=== PATIENT | female | born 1975 | race Hispanic/Latino ===

== ENCOUNTER 2017-10-23 08:50 | Emergency (ER) | payer MEDICAID ==
[2017-10-23 09:39] LABS: APPEARANCE,URINE Turbid (CLEAR); BILIRUBIN,URINE Negative (NEGATIVE); COLOR,URINE Yellow (YELLOW); GLUCOSE, URINE (UA) Negative (NEGATIVE); KETONES,URINE Negative (NEGATIVE); LEUKOCYTE ESTERASE ,URINE Large (NEGATIVE); NITRATE,URINE Positive (NEGATIVE); OCCULT BLOOD,URINE Moderate (NEGATIVE); PH,URINE 5.5 (5.0-8.0); PROTEIN,URINE Negative (NEGATIVE); UROBILINOGEN,URINE 0.2 mg/dL (0.2-1.0)
[2017-10-23 09:44] LABS: HCG,QUAL RESULT NEGATIVE (NEGATIVE)
[2017-10-23 09:46] LABS: AMPHET/METH SCREEN,URINE NEGATIVE (NEGATIVE); BARBITURATE SCREEN, URINE NEGATIVE (NEGATIVE); BENZODIAZEPINES SCREEN,URINE NEGATIVE (NEGATIVE); CANNABINOID SCREEN,URINE NEGATIVE (NEGATIVE); COCAINE SCREEN,URINE NEGATIVE (NEGATIVE); OPIATE SCREEN,URINE NEGATIVE (NEGATIVE); PHENCYCLIDINE SCREEN,URINE NEGATIVE (NEGATIVE)
[2017-10-23 09:47] LABS: RBC,URINE 0-1 /HPF (0-1)
[2017-10-23 09:48] LABS: BACTERIA,URINE Few /HPF (None Seen); SQUAMOUS EPITHELIAL CELL,UR Rare /HPF (0-2); WBC,URINE 51-100 /HPF (0-1)
== END 2017-10-23 10:06 | disposition home or self-care (01) ==
LOC: EDH 08:50
DX: N39.0 Urinary tract infection, site not specified (principal)
CPT/HCPCS: 80305; 81001; 81025

== ENCOUNTER 2017-11-25 11:55 | Emergency (ER) | payer MEDICAID | END 2017-11-25 13:16 | disposition home or self-care (01) | LOC: EDH 11:55 | DX: L23.9 Allergic contact dermatitis, unspecified cause (principal); Z90.710 Acquired absence of both cervix and uterus; Z98.890 Other specified postprocedural states | CPT/HCPCS: 99282 ==

== ENCOUNTER 2023-10-07 17:38 | Emergency (ER) | payer BC, MEDICAID ==
[~2023-10-07] VITALS: Ht 157.5 cm; Wt 88.5 kg
[~2023-10-07 17:38] MED LIST: KETO-99 OP
[2023-10-07 18:03] LABS: HEMATOCRIT 43.1 % (36-48); MEAN CORPUSCULAR HGB CONC 32.9 g/dL (32.0-36.0); MEAN CORPUSCULAR VOLUME 75.9 fL (79-99); PLATELET COUNT (AUTO) 332 K/uL (130-400); RED BLOOD CELL COUNT(AUTO) 5.68 MIL/uL (4.00-5.50); RED CELL DISTRIBUTION WIDTH 14.4 % (11.0-15.5); WHITE BLOOD COUNT (AUTO) 15.1 K/uL (4.8-10.8)
[2023-10-07 18:12] LABS: POTASSIUM 2.9 mmol/L (3.5-5.1)
[2023-10-07] MEDS: KCL 20 MEQ ERTAB PO ONE (18:26)
[2023-10-07 19:14] LABS: APPEARANCE,URINE CLEAR (CLEAR); BILIRUBIN,URINE NEGATIVE (NEGATIVE); COLOR,URINE LIGHT-YELLOW (YELLOW); GLUCOSE, URINE (UA) NEGATIVE (NEGATIVE); KETONES,URINE NEGATIVE (NEGATIVE); LEUKOCYTE ESTERASE ,URINE NEGATIVE Leu/uL (NEGATIVE); NITRATE,URINE 2+ (NEGATIVE); OCCULT BLOOD,URINE MODERATE (NEGATIVE); PROTEIN,URINE NEGATIVE (NEGATIVE); UROBILINOGEN,URINE 0.2 mg/dL (0.2-1.0)
[2023-10-07 19:37] LABS: ADD UA MICROSCOPIC YES
[2023-10-07 19:40] LABS: BACTERIA,URINE MANY /HPF (None Seen); MUCUS,URINE RARE LPF (None Seen); SQUAMOUS EPITHELIAL CELL,UR RARE /HPF (0-2)
[2023-10-07] MEDS: CEFTRIAXONE 2GM VIAL IVPB ONE (20:20)
[2023-10-07] MEDS ORDERED: CEPH500C2 PO (20:40)
[2023-10-07] MEDS: FAMOTIDINE 20MG VIAL IV ONE (20:58)
[2023-10-07] MEDS: 0.9%NACL 1000ML 1,000 ML IV SCH (20:58)
[2023-10-07] MEDS: DiphenhydrAMINE HCL 50 MG/ML VIAL IV ONE (20:58)
[2023-10-07 22:42] VITALS: BP 132/82; PULSE 90; RESP 16; O2SAT 100
== END 2023-10-07 22:43 | disposition home or self-care (01) ==
LOC: EDH 17:38
DX: N39.0 Urinary tract infection, site not specified (principal); I10 Essential (primary) hypertension; F41.9 Anxiety disorder, unspecified; Z90.710 Acquired absence of both cervix and uterus; Z98.890 Other specified postprocedural states; Z88.2 Allergy status to sulfonamides; Z88.8 Allergy status to other drugs, medicaments and biological substances
CPT/HCPCS: 99284; 96365; 71045; 96361; 96375; 83735; 84484; 80048; 85027; 87077; 87088; 87186; 81001; 36415; 93005; J1200; J3490; J7030; J0696

== ENCOUNTER 2023-10-29 18:21 | Emergency (ER) | payer BC ==
[~2023-10-29] VITALS: Ht 157.5 cm; Wt 89.8 kg
[~2023-10-29 18:21] MED LIST changes: +CEPH500C2 PO
[2023-10-29] MEDS: ALBUTEROL 0.083% 2.5 MG/3 ML INH IH ONE (19:09)
[2023-10-29 19:14] VITALS: PULSE 84; RESP 14
[2023-10-29 19:26] VITALS: O2SAT 100
[2023-10-29 19:33] LABS: SARS-CoV-2, RNA, NAAT NEGATIVE SARS CoV-2 (NEGATIVE)
[2023-10-29 19:39] LABS: INFLUENZA TYPE A Negative For Type A (NEGATIVE); INFLUENZA TYPE B Negative For Type B (NEGATIVE)
[2023-10-29] MEDS: HYDROXYZINE 25 MG TABLET PO ONE (19:49)
[2023-10-29] MEDS: SOLU-MEDROL 125MG VIAL IM ONE (19:50)
[2023-10-29] MEDS ORDERED: METH4TAB3 PO (21:27)
[2023-10-29] MEDS ORDERED: AUD IH (21:27)
[2023-10-29] MEDS ORDERED: CETI10CA5 PO (21:27)
[2023-10-29] MEDS ORDERED: ALBUHFA IH (21:27)
[2023-10-29 21:28] VITALS: BP 134/70; PULSE 86; RESP 18
== END 2023-10-29 21:45 | disposition home or self-care (01) ==
LOC: EDH 18:21
DX: J45.901 Unspecified asthma with (acute) exacerbation (principal); F41.9 Anxiety disorder, unspecified; I10 Essential (primary) hypertension; E78.00 Pure hypercholesterolemia, unspecified; Z20.822 Contact with and (suspected) exposure to COVID-19; Z79.899 Other long term (current) drug therapy; Z90.710 Acquired absence of both cervix and uterus; Z88.1 Allergy status to other antibiotic agents; Z88.2 Allergy status to sulfonamides; Z88.8 Allergy status to other drugs, medicaments and biological substances
CPT/HCPCS: 99284; 71045; 87635; 87804 ×2; 96372; 94640; J2930

== ENCOUNTER 2024-06-29 23:47 | Emergency (ER) | payer BC ==
[~2024-06-29] VITALS: Ht 157.5 cm; Wt 91.2 kg
[~2024-06-29 23:47] MED LIST changes: +ALBUHFA IH; +AUD IH; +CETI10CA5 PO; +METH4TAB3 PO
--- NOTE | 2024-06-29 23:52 | NUR ---
COVID, FLU AND STREP SWABS COLLECTED AND SENT [facility] PROVIDED
[2024-06-30 00:14] LABS: RAPID GROUP A STREP negative (NEGATIVE); SARS-CoV-2, RNA, NAAT NEGATIVE SARS CoV-2 (NEGATIVE)
[2024-06-30 00:20] LABS: INFLUENZA TYPE A Negative For Type A (NEGATIVE); INFLUENZA TYPE B Negative For Type B (NEGATIVE)
[2024-06-30 00:35] LABS: CREATININE 0.9 mg/dL (0.5-1.0); POTASSIUM 3.8 mmol/L (3.5-5.1)
[2024-06-30 01:08] LABS: BASOPHILS # (AUTO) 0.04 K/uL (0.00-0.20); BASOPHILS % (AUTO) 0.7 % (0.0-5.0); EOSINOPHILS # (AUTO) 0.23 K/uL (0.00-0.70); EOSINOPHILS % (AUTO) 3.8 % (0.0-8.0); HEMATOCRIT 39.8 % (36-48); IMMATURE GRANULOCYTE ABSOLUTE 0.02 K/uL (0-1); LYMPHOCYTES # (AUTO) 1.8 K/uL (1.0-4.8); LYMPHOCYTES % (AUTO) 29.8 % (21.0-51.0); MEAN CORPUSCULAR HEMOGLOBIN 24.9 pg (27.0-33.0); MEAN CORPUSCULAR HGB CONC 32.2 g/dL (32.0-36.0); MEAN CORPUSCULAR VOLUME 77.3 fL (79-99); MONOCYTES # (AUTO) 0.4 K/uL (0.1-1.0); MONOCYTES % (AUTO) 6.4 % (3.0-13.0); NEUTROPHILS # (AUTO) 3.6 K/uL (1.8-7.7); PLATELET COUNT (AUTO) 251 K/uL (130-400); RED BLOOD CELL COUNT(AUTO) 5.15 MIL/uL (4.00-5.50); RED CELL DISTRIBUTION WIDTH 13.9 % (11.0-15.5); WHITE BLOOD COUNT (AUTO) 6.1 K/uL (4.8-10.8)
--- NOTE | 2024-06-30 01:12 | NUR ---
SITTING WITH FAMILY IN LOBBY BY SECURITY, NO ACUTE DISTRESS NOTED. GOOD EVEN CHEST RISE AND FALL NOTED
--- NOTE | 2024-06-30 01:15 | ERN ---
General Chief Complaint: Other Problems Stated Complaint: CHILLS Time Seen by MD: 23:51 Time Seen by Midlevel: 23:51 Source: patient History of Present Illness Initial Comments Patient is a presenting to the emergency department for evaluation of chills and muscle spasms to the upper trunk. Patient states she woke up today at 2300 and developed the spasming her chest area. She specifically denies any chest pain or difficulty breathing. Denies any other symptoms. She does report having a history of anxiety. Allergies: Coded Allergies: metronidazole (Unverified Allergy, Unknown, 02/16/23) sulfamethoxazole (Unverified Allergy, Unknown, 02/16/23) trimethoprim (Unverified Allergy, Unknown, 02/16/23) Home Meds Active Scripts Cetirizine HCl (Zyrtec) 10 Mg Capsule, 10 MG PO BID, #60 CAP 2 Refills Prov:ZEYNEP DIAMOND Sr., MD 10/29/23 Methylprednisolone (Medrol) 4 Mg Tab.ds.pk, 4 MG PO AD, #1 KIT 0 Refills Prov:ZEYNEP DIAMOND Sr., MD 10/29/23 Albuterol Sulfate (Ventolin Hfa/Proventil Hfa/Proair Hfa) 90 Mcg Puff, 2 PUFF IH Q4H for WHEEZING, #1 INHALER 2 Refills Prov:ZEYNEP DIAMOND Sr., MD 10/29/23 Albuterol Sulfate (Albuterol Sulfate) 2.5 Mg/0.5 Ml Vial.neb, 2.5 MG IH Q6H for wheezing/sob, #20 INH 2 Refills Prov:ZEYNEP DIAMOND Sr., MD 10/29/23 Cephalexin (Cephalexin) 500 Mg Capsule, 500 MG PO Q6H for 14 Days, #58 CAP Prov:GILBERT HERZOG MD 10/07/23 Ketotifen Fumarate (Ketotifen Fumarate) 5 Ml Drops, 5 ML OP TID, #5 DROP Prov:FAMILIA KIMBROUGH MD 02/16/23 Past Medical History Past Medical History: Asthma, Diabetes-Type II, High Cholesterol, Hypertension Past Surgical History: Hysterectomy Social History Social History: Negative, Lives with family ROS Dictation CONSTITUTIONAL: Negative except for HPI HEAD/FACE: Negative except for HPI EENT: Negative except for HPI RESPIRATORY: Negative except for HPI GASTROINTESTINAL/ABDOMINAL: Negative except for HPI GENITOURINARY: Negative except for HPI MUSCULOSKELETAL: Negative except for HPI INTEGUMENTARY: Negative except for HPI NEUROLOGICAL/PSYCH: Negative except for HPI HEMATOLOGIC/LYMPHATIC: Negative except for HPI All Systems Negative, Except as noted above. 13 point review of systems assessed and all negative except for above. Physical Exam Physical Exam Dictation Vital Signs reviewed General Appearance: Alert, oriented x 3, no acute distress, well developed, nourished. Head and Face: non-traumatic. Eyes: PERRL, pink conjunctivas, eyelid no trauma, anterior chamber with arcus senilis. Ears: Pinnas intact and no signs of trauma or erythema ear canals clear and no discharge TM no erythema Nose: No discharge, no bleeding. Oropharynx: Mouth normal, tongue pink, pharynx clear,no erythema, tonsils no exudates, no abscesses noted, mucous membrane moist Neck: Supple, non-tender, no thyromegaly, no masses, no JVD, no bruits Breast:Deferred Chest:No tenderness, no crepitus, no paradoxical movement, no retractions Lungs:Clear, well-ventilated, symmetric, no rales, no wheezing, no rhonchi, no stridor, good breath sounds bilaterally Heart: Regular rate, regular rhythm, no murmur, no gallops Vascular: no peripheral edema, Abdomen: Soft, positive bowel sounds, nondistended, no guarding, nontender, no rebound, no masses no hepatomegaly, no splenomegaly, no Santamaria's sign, no hernias. Rectal: Deferred Genital: Deferred Neurological: Normal speech, motor function intact, sensory function intact Musculoskeletal: Neck nontender, full range of motion, back nontender, full range of motion, Extremities: nontender, full range of motion Skin: Color pink, dry, no turgor, no rash, no lacerations, no abrasions, no contusions. Lymphatic: Deferred Results Laboratory and Microbiology Lab and Micro Result Laboratory Tests Test 06/29/24 23:53 06/30/24 00:16 Influenza Type A Antigen Negative For Type A Influenza Type B Antigen Negative For Type B SARS-CoV-2, RNA, NAAT NEGATIVE SARS CoV-2 Group A Streptococcus Rapid negative (NEGATIVE) White Blood Count 6.1 K/uL (4.8-10.8) Red Blood Count 5.15 MIL/uL (4.00-5.50) Hemoglobin 12.8 g/dL (12.0-16.0) Hematocrit 39.8 % (36-48) Mean Corpuscular Volume 77.3 fL (79-99) L Mean Corpuscular Hemoglobin 24.9 pg (27.0-33.0) L Mean Corpuscular Hemoglobin Concent 32.2 g/dL (32.0-36.0) Red Cell Distribution Width 13.9 % (11.0-15.5) Platelet Count 251 K/uL (130-400) Mean Platelet Volume 9.8 fL (7.5-10.5) Immature Granulocyte % (Auto) 0.3 % (0-1) Neutrophils (%) (Auto) 59.0 % (40.0-77.0) Lymphocytes (%) (Auto) 29.8 % (21.0-51.0) Monocytes (%) (Auto) 6.4 % (3.0-13.0) Eosinophils (%) (Auto) 3.8 % (0.0-8.0) Basophils (%) (Auto) 0.7 % (0.0-5.0) Neutrophils # (Auto) 3.6 K/uL (1.8-7.7) Lymphocytes # (Auto) 1.8 K/uL (1.0-4.8) Monocytes # (Auto) 0.4 K/uL (0.1-1.0) Eosinophils # (Auto) 0.23 K/uL (0.00-0.70) Basophils # (Auto) 0.04 K/uL (0.00-0.20) Absolute Immature Granulocyte (auto 0.02 K/uL (0-1) Nucleated Red Blood Cells 0.0 % (0.0-0.19) Red Blood Cell Morphology See comments Sodium Level 140 mmol/L (136-145) Potassium Level 3.8 mmol/L (3.5-5.1) Chloride Level 106 mmol/L (101-111) Carbon Dioxide Level 28 mmol/L (21-32) Blood Urea Nitrogen 13 mg/dL (7-18) Creatinine 0.9 mg/dL (0.5-1.0) Glomerular Filtration Rate Calc 78 mL/min (>90) Random Glucose 100 mg/dL (70-105) Total Calcium 8.8 mg/dL (8.5-10.1) Serum Test, Qualitative NEGATIVE (NEGATIVE) Labs Reviewed?: Yes MDM MDM: Patient is a presenting to the emergency department for evaluation of chills and muscle spasms to the upper trunk. Patient states she woke up today at 2300 and developed the spasming her chest area. She specifically denies any chest pain or difficulty breathing. Denies any other symptoms. She does report having a history of anxiety. I obtain basic blood work to rule out electrolyte abnormalities however her blood work is unremarkable. We will discharged home with supportive management. Symptoms most likely anxiety. Differential diagnosis: There are no social concerns with this patient. Prescription drug management Prescriptions will include: None Medical management and examination interpretation discussions were had by me with other qualified healthcare professionals as indicated for the patient's care. ED Course Orders Procedure Category Date Status Time Covid Rna Naat LAB 06/29/24 Complete 23:51 Influenza Type A & B, LAB 06/29/24 Complete Rapid 23:51 Rapid (Group A Strep) LAB 06/29/24 Complete 23:51 Cbc With Differential LAB 06/29/24 Complete 23:59 Basic Metabolic Panel LAB 06/29/24 Complete 23:59 Testing, LAB 06/29/24 Complete Serum Hcg 23:59 Vital Signs Date Time Temp Pulse Resp B/P (MAP) Pulse Ox O2 Delivery O2 Flow Rate FiO2 06/30/24 01:19 98.4 86 20 142/67 100 Room Air* 0 21 06/29/24 23:48 98.2 88 16 159/79 99 Room Air DX & DISP Disposition: Discharge Departure Impression: Primary Impression: Chills Condition: Stable Additional Instructions: Your blood work today is unremarkable. Your electrolytes are normal. You have tested negative for influenza a, influenza B, COVID-19, and strep. Follow up with your doctor in 2-3 days for repeat evaluation. Return to the ER for any new or worsening symptoms Referrals: SELF,REFERRAL (PCP) Time of Disposition: 01:15 I have reviewed the case, and I agree with, Diagnosis and Plan I performed the substantive portion of the visit. I have reviewed and personally made and approve the management plan that is documented in the note by myself or the JAMI. I acknowledge for responsibility for the patient's manag ement plan. MARTINE GOLDMAN Jun 30, 2024 01:15
[2024-06-30 01:19] VITALS: BP 142/67; PULSE 86; RESP 20; TEMP 98.4; O2SAT 100
--- NOTE | 2024-06-30 01:22 | NUR ---
OK TO DC WITHOUT UA
== END 2024-06-30 01:25 | disposition home or self-care (01) ==
LOC: EDH 23:47
DX: R68.89 Other general symptoms and signs (principal); E11.9 Type 2 diabetes mellitus without complications; E78.00 Pure hypercholesterolemia, unspecified; I10 Essential (primary) hypertension; J45.909 Unspecified asthma, uncomplicated; Z20.822 Contact with and (suspected) exposure to COVID-19; Z88.1 Allergy status to other antibiotic agents; Z88.2 Allergy status to sulfonamides; Z90.710 Acquired absence of both cervix and uterus
CPT/HCPCS: 36415; 80048; 84703; 85025; 87635; 87804; 87880; 99283

== ENCOUNTER 2025-01-24 17:06 | Emergency (ER) | payer BC ==
[~2025-01-24] VITALS: Ht 157.5 cm; Wt 81.6 kg
--- NOTE | 2025-01-24 17:28 | ERN ---
ED Note History of Present Illness Stated Complaint: CHEST ACHE/ COUGH/ PHLEM/ SORE THROAT Chief Complaint: Cough Time Seen by MD: 17:09 Time Seen by Midlevel: 17:09 Dictation: The patient is a 49-year-old female with a history asthma, hyperlipidemia, hypertension, hysterectomy who presents to the emergency department with complaints of chest discomfort, slight productive cough, shortness of breath, sore throat. Patient reports that upper respiratory symptoms started last Monday where she went to a ER and was tested for COVID and flu which was negative. Chest pressure started last night. Reports pain to be constant. Denies any fever Allergies: Coded Allergies: metronidazole (Unverified Allergy, Unknown, 02/16/23) sulfamethoxazole (Unverified Allergy, Unknown, 02/16/23) trimethoprim (Unverified Allergy, Unknown, 02/16/23) Home Meds Active Scripts Methylprednisolone (Medrol) 4 Mg Tab.ds.pk, 4 MG PO AD for 6 Days, #1 PACK Day 1: Take 2 tablets before breakfast,1 tablet after lunch and supper, and 2 tablets at bedtime. Day 2: Take1 tablet before breakfast,1 tablet after lunch,1 tablet after supper, and 2 tablets at bedtime. Day 3: Take 1 tablet before breakfast, 1 tablet after lunch, 1 tablet after supper, and 1 tablet at bedtime. Day 4: Take 1 tablet before breakfast, 1 tablet after lunch, and 1 tablet at bedtime. Day 5: Take1 tablet before breakfast and 1 tablet at bedtime. Day 6: Take 1 tablet before breakfast. Prov:JESUS WHIPPLE 01/24/25 Albuterol Sulfate (Ventolin Hfa/Proventil Hfa/Proair Hfa) 90 Mcg Puff, 1-2 PUFF IH Q4H PRN for SHORTNESS OF BREATH for 5 Days, #1 INH 0 Refills PHARMACY TO DISPENSE 1 INHALER FOR USE Prov:JESUS WHIPPLE 01/24/25 Cetirizine HCl (Zyrtec) 10 Mg Capsule, 10 MG PO BID, #60 CAP 2 Refills Prov:ZEYNEP DIAMOND Sr., MD 10/29/23 Methylprednisolone (Medrol) 4 Mg Tab.ds.pk, 4 MG PO AD, #1 KIT 0 Refills Prov:ZEYNEP DIAMOND Sr., MD 10/29/23 Albuterol Sulfate (Ventolin Hfa/Proventil Hfa/Proair Hfa) 90 Mcg Puff, 2 PUFF IH Q4H for WHEEZING, #1 INHALER 2 Refills Prov:ZEYNEP DIAMOND Sr., MD 10/29/23 Albuterol Sulfate (Albuterol Sulfate) 2.5 Mg/0.5 Ml Vial.neb, 2.5 MG IH Q6H for wheezing/sob, #20 INH 2 Refills Prov:ZEYNEP DIAMOND Sr., MD 10/29/23 Cephalexin (Cephalexin) 500 Mg Capsule, 500 MG PO Q6H for 14 Days, #58 CAP Prov:GILBERT HERZOG MD 10/07/23 Ketotifen Fumarate (Ketotifen Fumarate) 5 Ml Drops, 5 ML OP TID, #5 DROP Prov:FAMILIA KIMBROUGH MD 02/16/23 Past Medical History Past Medical History: Asthma, High Cholesterol, Hypertension Surgical History: Hysterectomy, Social History: Negative, Lives with family RN Note Reviewed/Agreed w/PFSH: Yes Review of System Dictation Constitutional: Negative for fever,chills, and weight loss Eyes: Negative for injury, pain,redness, and discharge ENT: Negative for injury,pain or swelling Cardiovascular: Negative for palpitations, and edema positive for chest pain Respiratory: Positive for shortness of breath, cough, and wheezing, Abdomen/GI: Negative for abdominal pain, nausea, vomiting, diarrhea, and constipation Back: Negative for injury and pain : Negative for injury, bleeding and discharge MS/Extremity: Negative for injury and deformity Skin: Negative for rash, and discoloration Neuro: Negative for headache, weakness, numbness, tingling, and seizure Psych: Negative for suicide ideation, homicidal ideation, and hallucinations Initial Vital Sign VS Vital Signs Date Time Temp Pulse Resp B/P (MAP) Pulse Ox O2 Delivery O2 Flow Rate FiO2 01/24/25 17:08 98.2 84 18 133/86 99 Room Air 0 01/24/25 17:32 21 Physical Exam Dictation Vital Signs reviewed General Appearance: Alert, oriented x 3, no acute distress, well developed, nourished. Head and Face: non-traumatic. Eyes: PERRL, pink conjunctivas, eyelid no trauma, anterior chamber with arcus senilis. Ears: Pinnas intact and no signs of trauma or erythema ear canals clear and no discharge TM no erythema Nose: No discharge, no bleeding. Oropharynx: Mouth normal, tongue pink. pharynx clear,no erythema, tonsils no exudates, no abscesses noted, mucous membrane moist Neck: Supple, non-tender, no thyromegaly, no masses, no JVD, no bruits Breast:Deferred Chest:No tenderness, no crepitus, no paradoxical movement, no retractions Lungs:Clear, well-ventilated, symmetric, no rales, no wheezing, no rhonchi, no stridor, good breath sounds bilaterally Heart: Regular rate, regular rhythm, no murmur, no gallops Vascular: no peripheral edema, Abdomen: Soft, positive bowel sounds, nondistended, no guarding, nontender, no rebound, no masses no hepatomegaly, no splenomegaly, no Santamaria's sign, no hernias. Rectal: Deferred Genital: Deferred Neurological: Normal speech, motor function intact, sensory function intact Musculoskeletal: Neck nontender, full range of motion, back nontender, full range of motion, Extremities: nontender, full range of motion Skin: Color pink, dry, no turgor, no rash, no lacerations, no abrasions, no contusions. Lymphatic: Deferred Results (Laboratory/Radiology) Laboratory/Radiology Laboratory Tests Test 01/24/25 17:50 White Blood Count 8.1 K/uL (4.8-10.8) Red Blood Count 5.34 MIL/uL (4.00-5.50) Hemoglobin 13.2 g/dL (12.0-16.0) Hematocrit 40.4 % (36-48) Mean Corpuscular Volume 75.7 fL (79-99) L Mean Corpuscular Hemoglobin 24.7 pg (27.0-33.0) L Mean Corpuscular Hemoglobin Concent 32.7 g/dL (32.0-36.0) Red Cell Distribution Width 14.1 % (11.0-15.5) Platelet Count 323 K/uL (130-400) Mean Platelet Volume 9.8 fL (7.5-10.5) Immature Granulocyte % (Auto) 0.2 % (0-1) Neutrophils (%) (Auto) 55.4 % (40.0-77.0) Lymphocytes (%) (Auto) 37.1 % (21.0-51.0) Monocytes (%) (Auto) 4.0 % (3.0-13.0) Eosinophils (%) (Auto) 2.4 % (0.0-8.0) Basophils (%) (Auto) 0.9 % (0.0-5.0) Neutrophils # (Auto) 4.5 K/uL (1.8-7.7) Lymphocytes # (Auto) 3.0 K/uL (1.0-4.8) Monocytes # (Auto) 0.3 K/uL (0.1-1.0) Eosinophils # (Auto) 0.19 K/uL (0.00-0.70) Basophils # (Auto) 0.07 K/uL (0.00-0.20) Absolute Immature Granulocyte (auto 0.02 K/uL (0-1) Nucleated Red Blood Cells 0.0 % (0.0-0.19) Red Blood Cell Morphology See comments Sodium Level 140 mmol/L (136-145) Potassium Level 3.5 mmol/L (3.5-5.1) Chloride Level 102 mmol/L (101-111) Carbon Dioxide Level 30 mmol/L (21-32) Blood Urea Nitrogen 13 mg/dL (7-18) Creatinine 0.8 mg/dL (0.5-1.0) Glomerular Filtration Rate Calc 90 mL/min (>90) Random Glucose 95 mg/dL (70-105) Total Calcium 9.2 mg/dL (8.5-10.1) Magnesium Level 2.00 mg/dL (1.80-2.40) Total Creatine Kinase 37 U/L (21-232) Troponin I High Sensitivity 10 ng/L (4-50) B-Type Natriuretic Peptide 15 pg/mL (0-100) Influenza Type A Antigen Negative For Type A Influenza Type B Antigen Negative For Type B SARS-CoV-2 Antigen (Rapid) PRESUMPTIVE NEGATIVE Group A Streptococcus Rapid negative (NEGATIVE) REASON: CP ORDERING PHYSICIAN: JESUS WHIPPLE PROCEDURE: CXR1VW - CHEST 1VW PORTABLE CHEST RADIOGRAPH INDICATION: CP COMPARISON: 10/29/2023 FINDINGS: Heart size is normal. The pulmonary vascularity and gumaro appear normal. No abnormal pulmonary parenchymal opacity or consolidation identified. No significant pleural effusion noted. No pneumothorax detected. IMPRESSION: No radiographic evidence for any acute cardiopulmonary process. Labs Reviewed?: Yes EKG: (+) rhythm (Sinus rhythm) EKG Comment: Date:01/24/2025 Time:1756 Ventricular rate:79 MS interval:155 QRS duration:96 QT/QTc:440 EKG interpretation: Sinus rhythm Reviewed by ED Attending no STEMI ED Course ED Course Orders Procedure Category Date Status Time Cbc With Differential LAB 01/24/25 Complete 17:19 B-Type Natriuretic LAB 01/24/25 Complete Peptide 17:19 Chest 1vw RAD 01/24/25 Resulted 17:19 12 Lead Ekg Tracing- EKG 01/24/25 Resulted Technical 17:19 Magnesium LAB 01/24/25 Complete 17:19 Creatine Kinase, Total LAB 01/24/25 Complete 17:19 Troponin I High LAB 01/24/25 Complete Sensitivity 17:19 Basic Metabolic Panel LAB 01/24/25 Complete 17:19 Methylprednisolone PHA 01/24/25 Complete Succ 125mg (Solu-Medr 17:30 Ipratropium/Albuterol PHA 01/24/25 Complete Neb (Duoneb) 17:30 Influenza Type A & B, LAB 01/24/25 Complete Rapid 17:32 Covid19 (Sars Antigen LAB 01/24/25 Complete Rapid) 17:32 Rapid (Group A Strep) LAB 01/24/25 Complete 17:32 Current Medications Medications (Trade) Dose Ordered Sig/Sylvia Route PRN Reason Start Time Stop Time Status Last Admin Dose Admin Albuterol (DUOneb) 1 UDVIAL ONCE ONCE IH 01/24/25 17:30 01/24/25 17:31 DC 01/24/25 17:35 Methylprednisolone Sodium Succinate (Solu-medROL 125MG) 125 mg ONCE ONCE IVP 01/24/25 17:30 01/24/25 17:31 DC 01/24/25 18:13 Vital Signs Date Time Temp Pulse Resp B/P (MAP) Pulse Ox O2 Delivery O2 Flow Rate FiO2 01/24/25 19:47 98.2 74 20 127/82 99 Room Air* 0 21 01/24/25 17:36 78 20 01/24/25 17:32 98.2 84 20 133/86 99 Room Air* 0 21 01/24/25 17:08 98.2 84 18 133/86 99 Room Air 0 HEART Score Response (Comments) Value History: Low suspicion (0) 0 EKG: Normal 0 Age: 45-65yrs (+1) 1 Risk Factors: 1-2 risk factors (+1) 1 Initial Troponin: Normal limit (0) 0 Total 2 Medical Decision Making MDM The patient is a 49-year-old female with a history asthma, hyperlipidemia, hypertension, hysterectomy who presents to the emergency department with complaints of chest discomfort, slight productive cough, shortness of breath, sore throat. Patient reports that upper respiratory symptoms started last Monday where she went to a ER and was tested for COVID and flu which was negative. Chest pressure started last night. Reports pain to be constant. Denies any fever. CBC showed no leukocytosis, no anemia, chemistry showed no electrolyte imbalance, negative troponin, patient with low cardiac score, negative BNP, normal renal function, serology negative. Chest x-ray showed no acute infiltrates. On physical exam patient is in no acute distress, stable vital signs. Clear lung sounds. Patient has symptoms probably related to an upper respiratory infection. Labs and imaging discussed with the patient who agrees to follow up with PCP. Differential diagnosis: Pneumonia, ACS, costochondritis, bronchitis Need for hospitalization: Patient does not meet criteria for hospitalization. There are no social concerns with this patient. DX & DISP Disposition: Discharge Departure Impression: Primary Impression: Bronchitis Additional Impression: Chest pain with low risk for cardiac etiology Condition: Stable Scripts Methylprednisolone (Medrol) 4 Mg Tab.ds.pk 4 MG PO AD for 6 Days, #1 PACK Day 1: Take 2 tablets before breakfast,1 tablet after lunch and supper, and 2 tablets at bedtime. Day 2: Take1 tablet before breakfast,1 tablet after lunch,1 tablet after supper, and 2 tablets at bedtime. Day 3: Take 1 tablet before breakfast, 1 tablet after lunch, 1 tablet after supper, and 1 tablet at bedtime. Day 4: Take 1 tablet before breakfast, 1 tablet after lunch, and 1 tablet at bedtime. Day 5: Take1 tablet before breakfast and 1 tablet at bedtime. Day 6: Take 1 tablet before breakfast. Prov: JESUS WHIPPLE CHRONIC DISEASE MANAGER 01/24/25 Albuterol Sulfate (Ventolin Hfa/Proventil Hfa/Proair Hfa) 90 Mcg Puff 1-2 PUFF IH Q4H PRN for SHORTNESS OF BREATH for 5 Days, #1 INH 0 Refills PHARMACY TO DISPENSE 1 INHALER FOR USE Prov: JESUS WHIPPLE 01/24/25 Additional Instructions: Your labs were unremarkable. Your chest xray showed no pneumonia, Please take your medications as prescribed. If symptoms worsen please return to ER. FOLLOW-UP WITH PRIMARY CARE PROVIDER IN 1 TO 2 DAYS. TAKE MEDICATIONS DIRECTED HERE IN THE EMERGENCY ROOM. OKAY TO CONTINUE HOME MEDICATIONS UNLESS OTHERWISE DISCUSSED DURING YOUR VISIT IN THE EMERGENCY ROOM TODAY. RETURN TO YOUR NEAREST EMERGENCY ROOM IF SYMPTOMS WORSEN OR IF THERE IS NO IMPROVEMENT. CALL 911 IF YOU NEED IMMEDIATE ASSISTANCE. TAKE TYLENOL OR MOTRIN [id number] NEEDED AND IF NO CONTRAINDICATIONS ARE PRESENT. INCREASE ORAL HYDRATION. A WOUND CULTURE OR URINE CULTURE WAS ORDERED HERE IN THE EMERGENCY ROOM DEPARTMENT PLEASE FOLLOW-UP WITH PRIMARY CARE PROVIDER AND ADVISE THEM TO GET REPEAT PORTS FROM OUR FACILITY. IF YOU HAD ANY JENNIFER WRAP/SPLINTS THAT WERE APPLIED HERE, PLEASE DO NOT REMOVE THEM UNTIL YOU SEE YOUR PRIMARY CARE OR SPECIALTY. Referrals: IVETH HUBER (PCP) Time of Disposition: 19:29 I have reviewed the case, and I agree with, Diagnosis and Plan JESUS WHIPPLE Jan 24, 2025 17:28 NAGI TURK DO Jan 27, 2025 03:52
[2025-01-24] MEDS: IpraTROPium/alBUTERol SULFATE 3 ML SOLUTION IH ONE (17:35)
[2025-01-24 17:36] VITALS: PULSE 78; RESP 20
--- NOTE | 2025-01-24 17:38 | HMCIMG ---
PORTABLE CHEST RADIOGRAPH INDICATION: CP COMPARISON: 10/29/2023 FINDINGS: Heart size is normal. The pulmonary vascularity and gumaro appear normal. No abnormal pulmonary parenchymal opacity or consolidation identified. No significant pleural effusion noted. No pneumothorax detected. IMPRESSION: No radiographic evidence for any acute cardiopulmonary process.
--- NOTE | 2025-01-24 17:59 | EKG ---
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
[2025-01-24 18:00] LABS: BASOPHILS # (AUTO) 0.07 K/uL (0.00-0.20); BASOPHILS % (AUTO) 0.9 % (0.0-5.0); EOSINOPHILS # (AUTO) 0.19 K/uL (0.00-0.70); EOSINOPHILS % (AUTO) 2.4 % (0.0-8.0); HEMATOCRIT 40.4 % (36-48); IMMATURE GRANULOCYTE ABSOLUTE 0.02 K/uL (0-1); LYMPHOCYTES % (AUTO) 37.1 % (21.0-51.0); MEAN CORPUSCULAR HEMOGLOBIN 24.7 pg (27.0-33.0); MEAN CORPUSCULAR HGB CONC 32.7 g/dL (32.0-36.0); MEAN CORPUSCULAR VOLUME 75.7 fL (79-99); MONOCYTES # (AUTO) 0.3 K/uL (0.1-1.0); NEUTROPHILS # (AUTO) 4.5 K/uL (1.8-7.7); NEUTROPHILS % (AUTO) 55.4 % (40.0-77.0); PLATELET COUNT (AUTO) 323 K/uL (130-400); RED BLOOD CELL COUNT(AUTO) 5.34 MIL/uL (4.00-5.50); RED CELL DISTRIBUTION WIDTH 14.1 % (11.0-15.5); WHITE BLOOD COUNT (AUTO) 8.1 K/uL (4.8-10.8)
[2025-01-24 18:08] LABS: RAPID GROUP A STREP negative (NEGATIVE)
[2025-01-24 18:09] LABS: CREATININE 0.8 mg/dL (0.5-1.0); POTASSIUM 3.5 mmol/L (3.5-5.1)
[2025-01-24] MEDS: Solu-medROL 125MG VIAL IVP ONE (18:13)
[2025-01-24 18:18] LABS: COVID19 (SARS ANTIGEN RAPID) PRESUMPTIVE NEGATIVE (NEGATIVE); INFLUENZA TYPE A Negative For Type A (NEGATIVE); INFLUENZA TYPE B Negative For Type B (NEGATIVE)
[2025-01-24 18:21] LABS: B-TYPE NATRIURETIC PEPTIDE 15 pg/mL (0-100)
[2025-01-24] MEDS ORDERED: METH4TAB3 PO (19:32)
[2025-01-24] MEDS ORDERED: ALBUHFA IH (19:32)
[2025-01-24 19:47] VITALS: BP 127/82; PULSE 74; RESP 20; TEMP 98.2; O2SAT 99
== END 2025-01-24 19:47 | disposition home or self-care (01) ==
LOC: EDH 17:06
DX: J40 Bronchitis, not specified as acute or chronic (principal); R07.89 Other chest pain; E78.00 Pure hypercholesterolemia, unspecified; I10 Essential (primary) hypertension; Z88.1 Allergy status to other antibiotic agents; Z88.2 Allergy status to sulfonamides; Z90.710 Acquired absence of both cervix and uterus; Z20.822 Contact with and (suspected) exposure to COVID-19
CPT/HCPCS: 99284; 96374; 71045; 87426; 82550; 83735; 84484; 80048; 83880; 85025; 87880; 87804 ×2; 36415; 93005; 94640; J2919

== ENCOUNTER 2025-02-18 13:06 | Emergency (ER) | payer BC ==
[~2025-02-18] VITALS: Ht 157.5 cm; Wt 80.7 kg
[~2025-02-18 13:06] MED LIST changes: +DICY20TA2 PO; +OMEP40CA21 PO; +ONDA-243 PO
[2025-02-18] MEDS: 0.9%NACL 1000ML 1,000 ML IV ONE (13:37)
[2025-02-18 13:52] LABS: IMMATURE GRANULOCYTE ABSOLUTE 0.01 K/uL (0-1); NUCLEATED RED BLOOD CELLS 0.0 % (0.0-0.19); PLATELET COUNT (AUTO) 301 K/uL (130-400); RED BLOOD CELL COUNT(AUTO) 5.08 MIL/uL (4.00-5.50); RED CELL DISTRIBUTION WIDTH 14.8 % (11.0-15.5); WHITE BLOOD COUNT (AUTO) 5.3 K/uL (4.8-10.8)
[2025-02-18 14:03] LABS: ADD UA MICROSCOPIC YES; APPEARANCE,URINE CLEAR (CLEAR); GLUCOSE, URINE (UA) NEGATIVE (NEGATIVE); LEUKOCYTE ESTERASE ,URINE 25 Leu/uL (NEGATIVE); NITRATE,URINE NEGATIVE (NEGATIVE); OCCULT BLOOD,URINE MODERATE (NEGATIVE)
[2025-02-18 14:03] LABS: CREATININE 0.8 mg/dL (0.5-1.0); GLOMERULAR FILTR. RATE CALC 90.0 mL/min (>90); GLUCOSE,RANDOM 95.0 mg/dL (70-105); SODIUM SERUM 142.0 mmol/L (136-145); UREA NITROGEN, BLOOD 13.0 mg/dL (7-18)
[2025-02-18 14:05] LABS: SQUAMOUS EPITHELIAL CELL,UR RARE /HPF (0-2)
--- NOTE | 2025-02-18 15:33 | ERN ---
ED Note History of Present Illness Stated Complaint: WEAKNESS Chief Complaint: Weakness Time Seen by MD: 13:15 Time Seen by Midlevel: 13:18 Dictation: 49-year-old female coming in with complaints of generalized body weakness and cloudy urine. Patient states she is just getting over COVID but feels very weak and feels like she wants to faint. Patient states it started one day ago. History of hysterectomy. Patient has a history of hypertension, asthma. Allergies: Coded Allergies: metronidazole (Unverified Allergy, Unknown, 02/16/23) sulfamethoxazole (Unverified Allergy, Unknown, 02/16/23) trimethoprim (Unverified Allergy, Unknown, 02/16/23) Home Meds Active Scripts Ondansetron (Ondansetron Odt) 4 Mg Tab.rapdis, 4 MG PO Q6HPRN PRN for nausea, #16 TAB 0 Refills Prov:HUBERT DONIS NP 01/29/25 Omeprazole (Omeprazole) 40 Mg Capsule.dr, 1 CAP PO DAILY for 30 Days, #30 CAP 0 Refills Prov:HUBERT DONIS NP 01/29/25 Dicyclomine HCl (Bentyl) 20 Mg Tab, 20 MG PO Q6HPRN PRN for ABDOMINAL CRAMPING, #30 TAB Prov:HUBERT DONIS NP 01/29/25 Methylprednisolone (Medrol) 4 Mg Tab.ds.pk, 4 MG PO AD for 6 Days, #1 PACK Day 1: Take 2 tablets before breakfast,1 tablet after lunch and supper, and 2 tablets at bedtime. Day 2: Take1 tablet before breakfast,1 tablet after lunch,1 tablet after supper, and 2 tablets at bedtime. Day 3: Take 1 tablet before breakfast, 1 tablet after lunch, 1 tablet after supper, and 1 tablet at bedtime. Day 4: Take 1 tablet before breakfast, 1 tablet after lunch, and 1 tablet at bedtime. Day 5: Take1 tablet before breakfast and 1 tablet at bedtime. Day 6: Take 1 tablet before breakfast. Prov:JESUS WHIPPLE 01/24/25 Albuterol Sulfate (Ventolin Hfa/Proventil Hfa/Proair Hfa) 90 Mcg Puff, 1-2 PUFF IH Q4H PRN for SHORTNESS OF BREATH for 5 Days, #1 INH 0 Refills PHARMACY TO DISPENSE 1 INHALER FOR USE Prov:JESUS WHIPPLE [employer] 01/24/25 Cetirizine HCl (Zyrtec) 10 Mg Capsule, 10 MG PO BID, #60 CAP 2 Refills Prov:ZEYNEP DIAMOND Sr., MD 10/29/23 Methylprednisolone (Medrol) 4 Mg Tab.ds.pk, 4 MG PO AD, #1 KIT 0 Refills Prov:ZEYNEP DIAMOND Sr., MD 10/29/23 Albuterol Sulfate (Ventolin Hfa/Proventil Hfa/Proair Hfa) 90 Mcg Puff, 2 PUFF IH Q4H for WHEEZING, #1 INHALER 2 Refills Prov:ZEYNEP DIAMOND Sr., MD 10/29/23 Albuterol Sulfate (Albuterol Sulfate) 2.5 Mg/0.5 Ml Vial.neb, 2.5 MG IH Q6H for wheezing/sob, #20 INH 2 Refills Prov:ZEYNEP DIAMOND Sr., MD 10/29/23 Cephalexin (Cephalexin) 500 Mg Capsule, 500 MG PO Q6H for 14 Days, #58 CAP Prov:GILBERT HERZOG MD 10/07/23 Ketotifen Fumarate (Ketotifen Fumarate) 5 Ml Drops, 5 ML OP TID, #5 DROP Prov:FAMILIA KIMBROUGH MD 02/16/23 Past Medical History Past Medical History: Hypertension Surgical History: None Social History: Negative, Lives with family History: Not Applicable Review of System Dictation Constitutional: Negative for fever,chills, and weight loss Eyes: Negative for injury, pain,redness, and discharge ENT: Negative for injury,pain or swelling Cardiovascular: Negative for chest pain, palpitations, and edema Respiratory: Negative for shortness of breath, cough, and wheezing, Abdomen/GI: Negative for abdominal pain, nausea, vomiting, diarrhea, and constipation Back: Negative for injury and pain : Negative for injury, bleeding and discharge MS/Extremity: Negative for injury and deformity Skin: Negative for rash, and discoloration Neuro: Negative for headache, weakness, numbness, tingling, and seizure Psych: Negative for suicide ideation, homicidal ideation, and hallucinations Review of Systems: was completed Initial Vital Sign VS Vital Signs Date Time Temp Pulse Resp B/P (MAP) Pulse Ox O2 Delivery O2 Flow Rate FiO2 02/18/25 13:11 98.8 83 18 148/87 98 Physical Exam Dictation General: awake, alert, NAD Head/Face: Normocephalic, atraumatic Eyes: PERRL, EOMI, vision at baseline ENT: oral cavity clear, TMs clear, no signs of infection Neck: Trachea midline, supple, no nuchal rigidity Cardiovascular: RRR, normal S1/S2, No MRGs, no JVD Respiratory: CTAB, no respiratory distress, No rales or wheezes Abdomen: Soft, non-tender, non-distended, normal bowel sounds, no guarding or rebound. Skin: Warm, dry, normal turgor, no rash MS/Extremity: Pulses equal, no cyanosis, neurovascular intact, FROM Neuro: COAx4, GCS 15, strength 5/5, CN 2-12 intact, normal cerebellar exam, normal gait, Psych: Normal behavior, mood, and affect normal Results (Laboratory/Radiology) Laboratory/Radiology Laboratory Tests Test 02/18/25 13:42 02/18/25 13:48 White Blood Count 5.3 K/uL (4.8-10.8) Red Blood Count 5.08 MIL/uL (4.00-5.50) Hemoglobin 12.5 g/dL (12.0-16.0) Hematocrit 39.2 % (36-48) Mean Corpuscular Volume 77.2 fL (79-99) L Mean Corpuscular Hemoglobin 24.6 pg (27.0-33.0) L Mean Corpuscular Hemoglobin Concent 31.9 g/dL (32.0-36.0) L Red Cell Distribution Width 14.8 % (11.0-15.5) Platelet Count 301 K/uL (130-400) Mean Platelet Volume 9.7 fL (7.5-10.5) Immature Granulocyte % (Auto) 0.2 % (0-1) Neutrophils (%) (Auto) 49.6 % (40.0-77.0) Lymphocytes (%) (Auto) 43.3 % (21.0-51.0) Monocytes (%) (Auto) 4.2 % (3.0-13.0) Eosinophils (%) (Auto) 1.9 % (0.0-8.0) Basophils (%) (Auto) 0.8 % (0.0-5.0) Neutrophils # (Auto) 2.6 K/uL (1.8-7.7) Lymphocytes # (Auto) 2.3 K/uL (1.0-4.8) Monocytes # (Auto) 0.2 K/uL (0.1-1.0) Eosinophils # (Auto) 0.10 K/uL (0.00-0.70) Basophils # (Auto) 0.04 K/uL (0.00-0.20) Absolute Immature Granulocyte (auto 0.01 K/uL (0-1) Nucleated Red Blood Cells 0.0 % (0.0-0.19) Red Blood Cell Morphology See comments Sodium Level 142 mmol/L (136-145) Potassium Level 3.8 mmol/L (3.5-5.1) Chloride Level 105 mmol/L (101-111) Carbon Dioxide Level 27 mmol/L (21-32) Blood Urea Nitrogen 13 mg/dL (7-18) Creatinine 0.8 mg/dL (0.5-1.0) Glomerular Filtration Rate Calc 90 mL/min (>90) Random Glucose 95 mg/dL (70-105) Total Calcium 9.4 mg/dL (8.5-10.1) Urine Color LIGHT-YELLOW (YELLOW) Urine Appearance CLEAR (CLEAR) Urine pH 6.5 (5.0-8.0) Urine Specific [place] 1.024 (1.001-1.031) Urine Protein NEGATIVE mg/dL (NEGATIVE) Urine Glucose (UA) NEGATIVE mg/dL (NEGATIVE) Urine Ketones NEGATIVE mg/dL (NEGATIVE) Urine Occult Blood MODERATE (NEGATIVE) H Urine Nitrate NEGATIVE (NEGATIVE) Urine Bilirubin NEGATIVE mg/dL (NEGATIVE) Urine Urobilinogen 0.2 mg/dL (0.2-1.0) Urine Leukocyte Esterase 25 Fani/uL (NEGATIVE) H Urine RBC 26-50 /HPF (0-1) H Urine WBC 11-25 /HPF (0-1) H Urine Squamous Epithelial Cells RARE /HPF (0-2) Urine Bacteria RARE /HPF (None Seen) Labs Reviewed?: Yes ED Course ED Course Orders Procedure Category Date Status Time Cbc With Differential LAB 02/18/25 Complete 13:32 Basic Metabolic Panel LAB 02/18/25 Complete 13:32 Urinalysis Profile LAB 02/18/25 Complete 13:32 0.9%Nacl 1000ml (Ns PHA 02/18/25 Complete 1000ml) 14:00 Culture Urine JEMAL 02/18/25 Logged 14:06 Ceftriaxone 1g Vial PHA 02/18/25 Verified (Rocephine 1g Inj) 15:33 Current Medications Medications (Trade) Dose Ordered Sig/Sylvia Route PRN Reason Start Time Stop Time Status Last Admin Dose Admin Sodium Chloride 1,000 ml @ 1,000 mls/hr Q1H ONCE IV 02/18/25 14:00 02/18/25 14:59 DC 02/18/25 13:37 Vital Signs Date Time Temp Pulse Resp B/P (MAP) Pulse Ox O2 Delivery O2 Flow Rate FiO2 02/18/25 13:11 98.8 83 18 148/87 98 Medical Decision Making MDM MDM: 49-year-old female coming in with complaints of generalized body weakness and cloudy urine. Patient states she is just getting over COVID but feels very weak and feels like she wants to faint. Patient states it started one day ago. History of hysterectomy. Patient has a history of hypertension, asthma. Blood work unremarkable. UA shows evidence of urinary tract infection, Rocephin given in the ER. Patient received 1 L of fluids in the emergency room. Discussed with the patient on findings educated to follow up with PCP in 1-2 days. Educated to take [id number] supplements to increase her hydration, electrolytes . Differential diagnosis: Dehydration, electrolyte abnormality. Anemia Rationale: Tests considered and ordered secondary to shared decision making include: Previous outside records reviewed: Old ER visits. Risk of complication and/or morbidity or mortality of patient management: None Medications-Per medication reconciliation Need for hospitalization: Patient does not meet criteria for hospitalization. Need for emergency major/minor surgery: No There are no social concerns with this patient. Prescription drug management Prescriptions will include symptomatic care Patient's prior external medical records from other ER visits were reviewed by me as indicated. Prior testing and results from previous visits were reviewed. Prior tests were taken into account with medical decision making and resource utilization, independent historian/historians were used to obtain complete medical history. I independently interpreted the test that were performed, results were reviewed by me and considered findings on radiology if ordered. Medical management and examination interpretation discussions were had by me with other qualified healthcare professionals as indicated for the patient's care. DX & DISP Disposition: Discharge Departure Impression: Primary Impression: Generalized weakness Additional Impression: UTI (urinary tract infection) Condition: Stable Scripts Cephalexin Monohydrate (Keflex) 500 Mg Cap 500 MG PO TID for 7 Days, #21 CAP Prov: ZACH VELEZ NP 02/18/25 Additional Instructions: Follow up with your PCP in 1-2 days. Continue with the your hydration. Referrals: IVETH HUBER (PCP) Time of Disposition: 15:33 I have reviewed the case, and I agree with, Diagnosis and Plan ZACH VELEZ NP Feb 18, 2025 15:33
[2025-02-18] MEDS ORDERED: CEPH500B PO (15:35)
[2025-02-18 15:55] VITALS: BP 131/78; PULSE 78; RESP 18; TEMP 98.5; O2SAT 99
== END 2025-02-18 16:00 | disposition home or self-care (01) ==
LOC: EDH 13:06
DX: R53.1 Weakness (principal); N39.0 Urinary tract infection, site not specified; I10 Essential (primary) hypertension; Z79.899 Other long term (current) drug therapy; Z88.1 Allergy status to other antibiotic agents; Z88.2 Allergy status to sulfonamides
CPT/HCPCS: 99284; 96374; 96361; 80048; 85025; 87086 ×2; 87186; 81001; 36415; J7030; J0696